=== PATIENT | male | born 1950 | race Caucasian/White ===

== ENCOUNTER 2019-04-04 08:41 | Day surgery (SDC) | payer MEDICARE, OTHER ==
[~2019-04-04 08:41] MED LIST: DIPHENHYDRAMINE HCL 50 MG/ML VIAL ONE; EPINEPHRINE INJ 1 MG/10 ML DISP.SYRIN ONE; FENTANYL CITRATE INJ/PF 100 MCG/2 ML AMPUL ONE; FLUMAZENIL INJ 0.5 MG/5 ML VIAL ONE; GLUCAGON,HUMAN RECOMB 1 MG INJ ONE; NALOXONE HCL INJ/PF 0.4 MG/1 ML SDV ONE; ONDANSETRON HCL INJ/PF 4 MG/2 ML SDV ONE
[2019-04-04] MEDS: MIDAZOLAM 2 MG/2 ML INJ ONE ×3 (09:08→09:32)
--- NOTE | 2019-04-04 10:04 | Discharge Summary ---
Discharge Summary (SDC) - Discharge Final Diagnosis: Multiple colonic polyps Date of Surgery: 04/04/19 Discharge Date: 04/04/19 Condition: Good Forms: Sedation D/C Instructions, Discharge POC-Surgical Service Treatment or Instructions: FOLLOW UP DIRECTED BY YOUR MD NO DRIVING TODAY IT MAY TAKE SEVERAL DAYS FOR YOUR BOWEL MOVEMENTS TO GET BACK TO NORMAL PASS GAS FREELY TO RELIEVE GAS PAINS IN THE ABDOMEN Referrals: ELLIE ECHAVARRIA MD [ACTIVE STAFF] - 04/23/19 11:00 am Discharge Diet: As Tolerated Discharge Activity: Activity As Tolerated Home Care Assistance: None Needed Report the Following to Your Physician Immediately: Shortness of Breath, Increase in Pain, Fever over 101 Degrees - May resume Pradaxa April 05
--- NOTE | 2019-04-04 10:08 | Operative Report ---
Operative Report DATE OF SURGERY: 04/04/19 PREOPERATIVE DIAGNOSIS: 1. Personal history colonic polyps. 2. Strong family history of colon cancer POSTOPERATIVE DIAGNOSIS: Same with pedunculated polyp of the rectum; smaller polyps of the rectum and cecum OPERATION: 1. Total colonoscopy to cecum. 2. Cold forceps polypectomy of cecal and multiple small rectal polyps. 3. Hot snare polypectomy of moderate sized rectal polyp SURGEON: ELLIE ECHAVARRIA ANESTHESIA: Moderate Sedation TISSUE REMOVED OR ALTERED: Polyp sent to pathology COMPLICATIONS: None ESTIMATED BLOOD LOSS: Scant INTRAOPERATIVE FINDINGS: See below PROCEDURE: Obtaining informed consent the patient was taken from the preoperative holding area to the main endoscopy suite where monitoring devices were attached to the patient. Plan and surgical timeout were conducted The patient was placed in the left lateral decubitus position with knees to chest. A perianal examination was performed. There was no visible or palpable anorectal pathology. Sphincter tone was felt to be normal. The flexible adult colonoscope was advanced through the anal rectal canal, all the way to the cecum. Visualization of the cecum was achieved and the ileocecal valve, the appendiceal orifice and transillumination of the anterior abdominal wall. This was an excellent study on the well-prepped bowel. On the verge of the appendiceal orifice was a small polyp photographed and removed with the hot snare device. Specimen was retrieved. It Was labeled cecal polyp; the colonoscope was withdrawn slowly and methodically checked and the mucosa carefully. There was no evidence of tumor, stricture, bleeding; in the rectum there were several small hyperplastic polyps 2 of which were removed with a cold forceps device and sent as rectal polyps. At approximately 6 cm in the anal verge was 1.5 cm slightly irregular polyp on a thin stalk which was photographed and. removed with the hot snare device; specimen retrieved sent to pathology as rectal polyp. There was no evidence of diverticuloses. The scope was slowly withdrawn through the anal rectal canal. Complete visualization of the rectum was achieved with photodocumentation. The scope was withdrawn to the patient's anus. The patient tolerated the procedure well and was taken to the recovery area in stable condition. Surveillance guidelines, patient be appropriate candidate for follow-up colonoscopy in 1/2 to 3 years pending final path report on the moderate-sized
[2019-04-04 11:00] VITALS: BP 142/82
== END 2019-04-04 10:50 | disposition home or self-care (01) ==
LOC: END 08:41
PROVIDERS: ATTEND Surgery
DX: D12.0 Benign neoplasm of cecum (principal); D12.8 Benign neoplasm of rectum; K59.00 Constipation, unspecified; Z86.010 Personal history of colon polyps; I10 Essential (primary) hypertension; E11.9 Type 2 diabetes mellitus without complications; J45.909 Unspecified asthma, uncomplicated; I48.91 Unspecified atrial fibrillation; G47.30 Sleep apnea, unspecified; R63.4 Abnormal weight loss; E78.5 Hyperlipidemia, unspecified; Z79.01 Long term (current) use of anticoagulants; I35.0 Nonrheumatic aortic (valve) stenosis; R42 Dizziness and giddiness
CPT/HCPCS: 45385; 82962; 88305 ×2; J2250; J3010; J0171; J1200; J1610; J2310; J2405; J3490

== ENCOUNTER → 2020-07-15 | Outpatient (CLI) | payer MEDICARE, OTHER | LOC: OD 09:34 | PROVIDERS: ATTEND Pain Medicine Pain Medicine | DX: E55.9 Vitamin D deficiency, unspecified (principal); Z79.891 Long term (current) use of opiate analgesic | CPT/HCPCS: 36415; 82306; 84402; 84403 ==